=== PATIENT | female | born 1990 | race Caucasian/White ===

== ENCOUNTER 2024-04-27 15:19 | Emergency (ER) | payer OTHER, SELFPAY ==
--- NOTE | ~2024-04-27 | XR_ITS ---
EXAM: XR foot RT min 3V DATE: 04/27/2024 18:02 HISTORY: right toe pain, skin deformity . COMPARISON: None available. FINDINGS: Normal mineralization. No fracture or dislocation. No lytic or blastic lesion. Mild scatte red degenerative changes. Plantar enthesopathy. No erosion or periosteal change. Soft tissues within normal limits. IMPRESSION: No acute osseous finding in the right foot. Reviewed, dictated and finalized at location [facility]. [employer]
[2024-04-27 15:26] VITALS: BP 128/80; PULSE 85; RESP 18; TEMP 36.5; O2SAT 100
--- NOTE | 2024-04-27 17:52 | ED.LOWEXIN ---
HPI - Extremity Injury (Lower) General Chief Complaint: Extremity Injury, Lower Stated Complaint: foot wound Time Seen by Provider: 04/27/24 17:38 History of Present Illness HPI Narrative: 33-year-old female presents to the emergency department for right foot pain. Patient is reporting a lump to the plantar aspect of her right great toe. States this has been here for greater than 10 years. She states she saw a assembler product about 10 years ago and was told he needed to be removed which she did not want to undergo surgery. She states 3 days ago the pain began to increase in the left began to get larger so she became concerned and came to the ED. She states it has been draining clear fluid. She denies fever, nausea vomiting. No known past medical history. Related Data Allergies Allergy/AdvReac Type Severity Reaction Status Date / Time No Known Allergies Allergy Unverified 07/23/13 11:28 Review of Systems Review of Systems: All systems reviewed & are unremarkable except as noted in HPI and below PMFSH Social History Social History Smoking status: Never smoker Alcohol intake: never Exam Narrative: GENERAL: Well-appearing, well-nourished, and in no acute distress. HEAD: Normocephalic, atraumatic. EYES:EOMI. ENT: Nares clear, no rhinorrhea or epistaxis. Mucous membranes moist. NECK: Supple. CHEST: Clear to auscultation. No respiratory distress. HEART: Regular rate and rhythm. No murmur heard. Normal peripheral pulses.. EXTREMITIES: Pedunculated hyperkeratotic soft tissue mass to the plantar aspect of the right great toe near the 1st and 2nd interphalangeal space at the MTP with surrounding macerated skin and as read skin between 2nd and 3rd toe with foul-smelling clear drainage. No fluctuation or induration. No significant erythema or warmth SKIN: Warm, dry, no rash. NEURO: No focal deficits. Alert and oriented x3 Course Vital Signs Vital signs: Vital Signs Temperature 97.7 F 04/27/24 15:26 Pulse Rate 85 04/27/24 15:26 Respiratory Rate 18 04/27/24 15:26 Blood Pressure 128/80 04/27/24 15:26 Pulse Oximetry 100 04/27/24 15:26 Temperature 97.7 F 04/27/24 15:26 Pulse Rate 85 04/27/24 15:26 Respiratory Rate 18 04/27/24 15:26 Blood Pressure 128/80 04/27/24 15:26 Pulse Oximetry 100 04/27/24 15:26 MDM - Extremity Injury (Lower) MDM Narrative Medical decision making narrative: 33-year-old female presents emergency department for a mass to the plantar aspect of her great great toe for greater than 10 years, worsening over the past 3 days. Triage vitals are stable. Exam is significant for the above. X-ray of the foot shows no acute osseous findings. Exam is consistent with tinea pedis and a likely chronic hyperkeratotic mass/fibroma. Given reported worsening pain to this region will cover with antibiotics for possible concurrent cellulitis although it exam does not look significantly infected. Will also start antifungal cream. She was given referrals for Podiatry discuss strict ED return precautions. She is agreeable to plan verbalized understanding. Discharged in stable condition. Discharge Plan Discharge Clinical Impression: Athlete's foot Qualifiers: Laterality: right Qualified Code(s): B35.3 - Tinea pedis Foot mass Qualifiers: Laterality: right Qualified Code(s): R22.41 - Localized swelling, mass and lump, right lower limb Patient Disposition: Home, Self-Care Condition: Stable Instructions: Antibiotic Form, Antifungals (On the skin), Skin Yeast Infection (ED) Additional Instructions: Your evaluated in the emergency department for lump to her foot and pain to your foot. Her exam shows athlete's foot. The x-ray shows no acute findings. The lump on your foot is likely a benign lesion but needs to be followed by Podiatry. Please use the antifungal cream as directed for the athlete's foot and taking antibiotic in case there is a concurrent infection. Return to the emergency department if you develop fever or other concerning symptoms. Patient Language: [place] Prescriptions: New cephalexin 500 mg capsule 500 mg PO Q6H Qty: 28 0RF clotrimazole 1 % cream 1 applic topical BID 28 Days Qty: 15 0RF Follow-up/Referrals: Dawit Marie Jr., DPM [Physician] - PHYSICIAN,[employer] OPERATOR [Primary Care Provider] -
== END 2024-04-27 18:35 | disposition home or self-care (01) ==
LOC: ANHED 18:30
PROVIDERS: Emergency Provider Physician Assistant
DX: R22.41 Localized swelling, mass and lump, right lower limb (principal); B35.3 Tinea pedis
CPT/HCPCS: 73630; 99283